=== PATIENT | female | born 1965 | race Hispanic/Latino ===

== ENCOUNTER 2017-08-18 02:31 | Emergency (ER) | payer SELFPAY ==
[2017-08-18 02:55] VITALS: BMI 39.5
--- NOTE | 2017-08-18 03:25 | ED PDOC ---
Arrival/HPI - General Chief Complaint: Alcohol Ingestion Time Seen by Provider: 08/18/17 03:25 Historian: Patient - History of Present Illness Narrative History of Present Illness (Text): 08/18/17 03:25 A 52 year old female, with no known past medical history, presents to the emergency department for intoxication. Patient denies any other complaints. Limited HPI and ROS due to patient being intoxicated and uncooperative, stating she is not drunk and wants to leave. Also, patient visibly has sustained external nose injury s/p falling forward according to EMS. No PMD Past Medical History - Provider Review Nursing Documentation Reviewed: Yes - Infectious Disease Hx of Infectious Diseases: None - Past Medical History Past Medical History: Unable to Obtain - Cardiac Hx Cardiac Disorders: No (Pt denies) - Psychiatric Hx Substance Use: No - Past Surgical History Past Surgical History: Unable to Obtain - Surgical History Hx Section: Yes (x1) - Suicidal Assessment Feels Threatened In Home Enviroment: No Family/Social History - Physician Review Nursing Documentation Reviewed: Yes Family/Social History: Unknown Family HX Smoking Status: Current Some Days Smoker Hx Alcohol Use: No Hx Substance Use: No Hx Substance Use Treatment: No Allergies/Home Meds Allergies/Adverse Reactions: Allergies lactose Allergy (Verified 08/18/17 02:56) DIARRHEA Home Medications: Home Meds Medication Instructions Recorded Confirmed Unobtainable 08/18/17 08/18/17 Review of Systems - Review of Systems Systems not reviewed;Unavailable: Intoxicated Physical Exam - Physical Exam Physical Exam Limitations: Intoxication, Uncooperative Vital Signs Temp Pulse Resp BP Pulse Ox 08/18/17 06:43 98.2 F 72 17 115/78 98 08/18/17 03:32 97.4 F L 82 17 108/74 98 08/18/17 02:31 98 F 80 18 110/70 99 Appearance: Positive for: Other (intoxicated) - Systems Exam Mouth: Present: Moist Mucous Membranes Nose (External): Present: Other (active bleeding s/p fall from small laceration to bridge of nose; according to EMS patient fell forwards) Respiratory/Chest: Present: Clear to Auscultation Cardiovascular: Present: Regular Rate and Rhythm Upper Extremity: Present: Normal Inspection Lower Extremity: Present: Normal Inspection Psychiatric: Present: Intoxicated Medical Decision Making ED Course and Treatment: 08/18/17 03:33 Impression: 52 year old female with intoxicated. Plan: -- Reassess and disposition Progress Notes: Patient became progressively more awake and alert throughout ED course. Upon discharge patient was no longer slurring her speech and was ambulating without difficulty. She still refuses any medical care including further evaluation of her nose. - Scribe Statement The provider has reviewed the documentation as recorded by the Angelo Lambert Provider Scribe Attestation: All medical record entries made by the Scribe were at my direction and personally dictated by me. I have reviewed the chart and agree that the record accurately reflects my personal performance of the history, physical exam, medical decision making, and the department course for this patient. I have also personally directed, reviewed, and agree with the discharge instructions and disposition. Disposition/Present on Arrival - Present on Arrival Any Indicators Present on Arrival: No History of DVT/PE: No History of Uncontrolled Diabetes: No Urinary Catheter: No History of Decub. Ulcer: No History Surgical Site Infection Following: None - Disposition Have Diagnosis and Disposition been Completed?: Yes Diagnosis: Alcohol intoxication, Injury of nose Disposition: HOME/ ROUTINE Disposition Time: 06:00 Condition: FAIR Discharge Instructions (ExitCare): Alcohol Abuse and Alcoholism (DC) Additional Instructions: GIANNI ROSADO, thank you for letting us take care of you today. Your provider was Mary Jo Johnson MD and you were treated for ETOH. The emergency medical care you received today was directed at your acute symptoms. If you were prescribed any medication, please fill it and take as directed. It may take several days for your symptoms to resolve. Return to the Emergency Department if your symptoms worsen, do not improve, or if you have any other problems. Please contact your doctor or call one of the physicians/clinics you have been referred to that are listed on the Patient Visit Information form that is included in your discharge packet. Bring any paperwork you were given at discharge with you along with any medications you are taking to your follow up visit. Our treatment cannot replace ongoing medical care by a primary care provider outside of the emergency department. Thank you for allowing the [facility] team to be part of your care today. If you had an X-Ray or CT scan: A Radiologist will review the ED reading if any change in treatment is needed we will contact you. If you had a blood, urine, or wound culture: It will take several days for the results, if any change in treatment is needed we will contact you. If you had an STI test: It will take 48 hours for the results. Please call after 1 week if you have not heard back. Referrals: Anish Estevez, [Primary Care Provider] - Follow up with primary Forms: [employer] (Czech)
[2017-08-18 03:33] VITALS: RESP 17; O2SAT 98
[2017-08-18 06:45] VITALS: BP 115/78; PULSE 72; TEMP 98.2
== END 2017-08-18 06:44 | disposition home or self-care (01) ==
LOC: ED 02:31
DX: F10.129 Alcohol abuse with intoxication, unspecified (principal); S09.92XA Unspecified injury of nose, initial encounter; W18.30XA Fall on same level, unspecified, initial encounter; Y92.89 Other specified places as the place of occurrence of the external cause

== ENCOUNTER 2017-11-10 20:17 | Emergency (ER) | payer SELFPAY ==
[2017-11-10 20:17] VITALS: BMI 39.5
[2017-11-10 20:32] VITALS: RESP 18; TEMP 98.4; O2SAT 99
--- NOTE | 2017-11-10 20:37 | ED PDOC ---
Arrival/HPI - General Chief Complaint: Alcohol Ingestion Time Seen by Provider: 11/10/17 20:19 Historian: Patient - History of Present Illness Narrative History of Present Illness (Text): 11/10/17 20:34 52 year old female, whose past medical history includes ETOH abuse, who presents to the Emergency department via EMS for public intoxication. Upon arrival, patient is grossly intoxicated, uncooperative, yelling, and had to be re strained. Full HPI and ROS limited due to intoxication. Time/Duration: Prior to Arrival Activities at Onset: Light Past Medical History - Provider Review Nursing Documentation Reviewed: Yes - Infectious Disease Hx of Infectious Diseases: None - Reproductive Menopause: No - Past Medical History Past Medical History: Unable to Obtain - Cardiac Hx Cardiac Disorders: No (Pt denies) - Psychiatric Hx Substance Use: No - Past Surgical History Past Surgical History: Unable to Obtain - Surgical History Hx Section: Yes (x1) - Anesthesia Hx Anesthesia: No - Suicidal Assessment Feels Threatened In Home Enviroment: No Family/Social History - Physician Review Nursing Documentation Reviewed: Yes Family/Social History: Unknown Family HX Smoking Status: Current Some Days Smoker Hx Alcohol Use: No Hx Substance Use: No Hx Substance Use Treatment: No Allergies/Home Meds Allergies/Adverse Reactions: Allergies lactose Allergy (Verified 08/18/17 02:56) DIARRHEA Home Medications: Home Meds Medication Instructions Recorded Confirmed Unobtainable 08/18/17 08/18/17 Review of Systems - Physician Review All systems were reviewed & negative as marked: Yes - Review of Systems Systems not reviewed;Unavailable: Intoxicated Physical Exam Vital Signs Reviewed: Yes Vital Signs Temp Pulse Resp BP Pulse Ox 11/10/17 20:20 98.4 F 92 H 18 133/86 99 Temperature: Afebrile Blood Pressure: Normal Pulse: Regular Respiratory Rate: Normal Appearance: Positive for: Well-Appearing, Non-Toxic, Comfortable Pain Distress: None Mental Status: Positive for: Alert and Oriented X 3 - Systems Exam Head: Present: Atraumatic, Normocephalic Pupils: Present: PERRL Extroacular Muscles: Present: EOMI Conjunctiva: Present: Normal Mouth: Present: Moist Mucous Membranes Neck: Present: Normal Range of Motion Respiratory/Chest: Present: Clear to Auscultation, Good Air Exchange. No: Respiratory Distress, Accessory Muscle Use Cardiovascular: Present: Regular Rate and Rhythm, Normal S1, S2. No: Murmurs Abdomen: No: Tenderness, Distention, Peritoneal Signs Back: Present: Normal Inspection Upper Extremity: Present: Normal Inspection. No: Cyanosis, Edema Lower Extremity: Present: Normal Inspection. No: Edema Neurological: Present: GCS=15, CN II-XII Intact, Speech Normal Skin: Present: Warm, Dry, Normal Color. No: Rashes Psychiatric: Present: Alert, Oriented x 3, Agitated, Intoxicated, Other (uncooperative) Medical Decision Making ED Course and Treatment: 11/10/17 20:37 Impression: 52 year old female presents to the emergency department via EMS for public intoxication. Plan: -- Reassess and disposition Progress Notes: 11/11/17 06:23 Patient awake alert,sober in ED with steady gait. - Scribe Statement The provider has reviewed the documentation as recorded by the Scribe Lindsay Cabello All medical record entries made by the Scribe were at my direction and personally dictated by me. I have reviewed the chart and agree that the record accurately reflects my personal performance of the history, physical exam, medical decision making, and the department course for this patient. I have also personally directed, reviewed, and agree with the discharge instructions and disposition. Disposition/Present on Arrival - Present on Arrival Any Indicators Present on Arrival: No History of DVT/PE: No History of Uncontrolled Diabetes: No Urinary Catheter: No History of Decub. Ulcer: No History Surgical Site Infection Following: None - Disposition Have Diagnosis and Disposition been Completed?: Yes Diagnosis: Alcohol intoxication Disposition: HOME/ ROUTINE Disposition Time: 06:23 Patient Plan: Discharge Patient Problems: Current Active Problems Problem Status Onset Alcohol intoxication Acute Condition: GOOD Discharge Instructions (ExitCare): Alcohol Abuse and Alcoholism (DC) Referrals: Alcoholics Anonymous [Outside] - Follow up with primary Forms: [employer] (Slovenian)
[2017-11-11 06:41] VITALS: BP 127/74; PULSE 84
== END 2017-11-11 06:30 | disposition home or self-care (01) ==
LOC: ED 20:17
DX: F10.129 Alcohol abuse with intoxication, unspecified (principal)
CPT/HCPCS: 96372; 99283; J1630; J2060

== ENCOUNTER 2017-11-19 13:13 | Emergency (ER) | payer OTHER ==
[2017-11-19 13:13] VITALS: BMI 39.5
[2017-11-19 14:43] LABS: URINE BILIRUBIN SMALL (NEGATIVE); URINE BLOOD LARGE (NEGATIVE); URINE GLUCOSE (UA) 100 mg/dL (NEGATIVE); URINE LEUKOCYTE ESTERASE MODERATE Leu/uL (NEGATIVE); URINE PROTEIN 100 mg/dL (<30 mg/dL)
[2017-11-19 14:48] LABS: URINE APPEARANCE CLEAR (CLEAR); URINE COLOR YELLOW (YELLOW)
[2017-11-19 14:55] LABS: URINE RBC 25 - 30 /hpf (0-2); URINE WBC 15 - 20 /hpf (0-6)
[2017-11-19 14:56] LABS: URINE BACTERIA LARGE (NEG)
[2017-11-19 14:57] LABS: URINE AMORPHOUS SEDIMENT MODERATE
--- NOTE | 2017-11-19 15:23 | ED PDOC ---
Addendum entered and electronically signed by Shaila Eli PA 11/22/17 16:57: Addendum Addendum: 11/22/17 16:25 spoke with patient; urine culture did not test or keflex. sensitive to PCN; spoke with patient; will change antibiotic to amoxicilllin BID x 7 days. advised f/u with pmd and return if symptoms worsen,persist or if new symptoms develop. Original Note: Arrival/HPI - General Chief Complaint: Female Genitourinary Time Seen by Provider: 11/19/17 13:35 Historian: Patient - History of Present Illness Narrative History of Present Illness (Text): 11/19/17 15:26 52yo female with no significant pmhx who present with complaint of hematuria, dysuria, lower abdominal pain x 2days. She denies fever, chills, back pain, nausea, vomiting, any other complaint. Notes she is sexually active with protection. Past Medical History - Provider Review Nursing Documentation Reviewed: Yes - Infectious Disease Hx of Infectious Diseases: None - Tetanus Immunization Tetanus Immunization: Unknown - Reproductive Menopause: Yes - Past Medical History Past Medical History: Unable to Obtain - Cardiac Hx Cardiac Disorders: No - Pulmonary Hx Respiratory Disorders: No - Neurological Hx Neurological Disorder: No - HEENT Hx HEENT Disorder: No - Renal Hx Renal Disorder: No - Endocrine/Metabolic Hx Endocrine Disorders: No - Hematological/Oncological Hx Blood Disorders: No - Integumentary Hx Dermatological Disorder: No - Musculoskeletal/Rheumatological Hx Musculoskeletal Disorders: No - Gastrointestinal Hx Gastrointestinal Disorders: No - Genitourinary/Gynecological Hx Genitourinary Disorders: Yes Hx Sexually Transmitted Diseases: Yes Other/Comment: GENITAL WARTS - Psychiatric Hx Psychophysiologic Disorder: No Hx Substance Use: No - Past Surgical History Past Surgical History: Unable to Obtain - Surgical History Hx Section: Yes (x1) - Anesthesia Hx Anesthesia: No - Suicidal Assessment Feels Threatened In Home Enviroment: No Family/Social History - Physician Review Nursing Documentation Reviewed: Yes Family/Social History: Unknown Family HX Smoking Status: Current Some Days Smoker Hx Alcohol Use: Yes Hx Substance Use: No Hx Substance Use Treatment: No Allergies/Home Meds Allergies/Adverse Reactions: Allergies lactose Allergy (Verified 11/19/17 13:39) DIARRHEA Review of Systems - Physician Review All systems were reviewed & negative as marked: Yes - Review of Systems Constitutional: Normal Eyes: Normal ENT: Normal Respiratory: Normal Cardiovascular: Normal Gastrointestinal: Abdominal Pain. absent: Constipation, Diarrhea, Nausea, Vom iting, Hematochezia, Hematemesis Genitourinary Female: Dysuria, Frequency, Hematuria Musculoskeletal: Normal Skin: Normal Neurological: Normal Endocrine: Normal Hemo/Lymphatic: Normal Psychiatric: Normal Physical Exam Vital Signs Reviewed: Yes Vital Signs Temp Pulse Resp BP Pulse Ox 11/19/17 13:40 99.1 F 99 H 16 152/87 H 98 Temperature: Afebrile Blood Pressure: Normal Pulse: Regular Respiratory Rate: Normal Appearance: Positive for: Well-Appearing, Non-Toxic, Comfortable Pain Distress: None Mental Status: Positive for: Alert and Oriented X 3 - Systems Exam Head: Present: Atraumatic, Normocephalic Pupils: Present: PERRL Extroacular Muscles: Present: EOMI Conjunctiva: Present: Normal Mouth: Present: Moist Mucous Membranes Neck: Present: Normal Range of Motion Respiratory/Chest: Present: Clear to Auscultation, Good Air Exchange. No: Respiratory Distress, Accessory Muscle Use Cardiovascular: Present: Regular Rate and Rhythm, Normal S1, S2. No: Murmurs Abdomen: Present: Tenderness (Suprapubic tenderness), Normal Bowel Sounds, Other (Soft). No: Distention, Peritoneal Signs, Rebound, Guarding, McBurney's Point Tender, Rovsing's Sign Present Back: Present: Normal Inspection Upper Extremity: Present: Normal Inspection. No: Cyanosis, Edema Lower Extremity: Present: Normal Inspection. No: Edema Neurological: Present: GCS=15, CN II-XII Intact, Speech Normal Skin: Present: Warm, Dry, Normal Color. No: Rashes Psychiatric: Present: Alert, Oriented x 3, Normal Insight, Normal Concentration Medical Decision Making ED Course and Treatment: 11/19/17 19:50 PT in ED for stated history. She was afebrile and had no CVAT. She had UTI and yeast in her urine. she was treated for both in ED and was DC home with keflex. Referred to her PMD. - Lab Interpretations Lab Results: Lab Results 11/19/17 14:30: Urine Color Yellow, Urine Appearance Clear, Urine pH 6.0, Ur Specific [place] 1.010, Urine Protein 100 H, Urine Glucose (UA) 100 H, Urine Ketones Negative, Urine Blood Large H, Urine Nitrate Negative, Urine Bilirubin Small H, Urine Urobilinogen 4.0 H, Ur Leukocyte Esterase Moderate H, Urine RBC 25 - 30, Urine WBC 15 - 20, Ur Epithelial Cells 6 - 8, Amorphous Sediment Moderate, Urine Bacteria Large, Urine Other Uyeast Disposition/Present on Arrival - Present on Arrival Any Indicators Present on Arrival: No History of DVT/PE: No History of Uncontrolled Diabetes: No Urinary Catheter: No History of Decub. Ulcer: No History Surgical Site Infection Following: None - Disposition Have Diagnosis and Disposition been Completed?: Yes Diagnosis: UTI (urinary tract infection), Candidiasis Disposition: HOME/ ROUTINE Disposition Time: 15:25 Patient Plan: Discharge Condition: STABLE Discharge Instructions (ExitCare): Urinary Tract Infections in Adults, Yeast Infection (DC) Additional Instructions: Follow up with your Doctor Drink plenty of fluid and take Cranberry supplement Return to ED for any new or worsening symptoms Prescriptions: Cephalexin [cephalexin] 500 mg PO TID #21 cap Referrals: Veronica Lees MD [Medical Doctor] - Follow up with primary Forms: [employer] (Bruneian)
[2017-11-19 15:36] VITALS: BP 157/96; PULSE 95; RESP 18; TEMP 98.1; O2SAT 100
== END 2017-11-19 15:39 | disposition home or self-care (01) ==
LOC: ED 13:13
DX: B37.49 Other urogenital candidiasis (principal)

== ENCOUNTER 2017-11-29 18:08 | Emergency (ER) | payer OTHER ==
[2017-11-29 18:08] VITALS: BMI 39.5
[2017-11-29 18:51] VITALS: RESP 18; TEMP 98.8
[2017-11-29 20:22] LABS: URINE BILIRUBIN NEGATIVE (NEGATIVE); URINE BLOOD SMALL (NEGATIVE); URINE GLUCOSE (UA) NEGATIVE (NEGATIVE); URINE LEUKOCYTE ESTERASE SMALL Leu/uL (NEGATIVE); URINE PROTEIN NEGATIVE mg/dL (<30 mg/dL); URINE UROBILINOGEN 0.2 E.U./dL (<1 E.U./dL)
[2017-11-29 20:24] LABS: URINE APPEARANCE SLIGHT-CLOUDY (CLEAR); URINE COLOR YELLOW (YELLOW)
[2017-11-29 20:29] LABS: URINE WBC 0 - 2 /hpf (0-6)
[2017-11-29 20:30] LABS: URINE BACTERIA TRACE (NEG)
[2017-11-29 21:18] VITALS: BP 135/78; PULSE 75; O2SAT 100
--- NOTE | 2017-11-29 21:36 | ED PDOC ---
Arrival/HPI - General Historian: Patient - History of Present Illness Narrative History of Present Illness (Text): 11/29/17 21:36 52-year-old female presents today for evaluation to check to see if her urinary tract infection has resolved. Patient states she switched antibiotics to amoxicillin and completed the last dose of amoxicillin today. Patient states she is feeling much better but still feels like she may be going to the bathroom's more frequently. Patient denies nausea vomiting diarrhea constipation. She denies abdominal pain. No fevers or chills. No back pain. No other complaints <Shaila Eli - Last Filed: 11/29/17 21:33> <Paul Foster - Last Filed: 11/29/17 22:40> - General Chief Complaint: Female Genitourinary Time Seen by Provider: 11/29/17 19:55 Past Medical History - Provider Review Nursing Documentation Reviewed: Yes - Travel History Have you recently traveled outside [place] w/in the past 3 mons?: No - Infectious Disease Hx of Infectious Diseases: None - Tetanus Immunization Tetanus Immunization: Unknown - Reproductive Menopause: No - Past Medical History Past Medical History: Unable to Obtain - Cardiac Hx Cardiac Disorders: No - Pulmonary Hx Respiratory Disorders: No - Neurological Hx Neurological Disorder: No - HEENT Hx HEENT Disorder: No - Renal Hx Renal Disorder: No - Endocrine/Metabolic Hx Endocrine Disorders: No - Hematological/Oncological Hx Blood Disorders: No - Integumentary Hx Dermatological Disorder: No - Musculoskeletal/Rheumatological Hx Musculoskeletal Disorders: No - Gastrointestinal Hx Gastrointestinal Disorders: No - Genitourinary/Gynecological Hx Genitourinary Disorders: Yes Hx Sexually Transmitted Diseases: Yes Other/Comment: GENITAL WARTS - Psychiatric Hx Psychophysiologic Disorder: No Hx Substance Use: No - Past Surgical History Past Surgical History: Unable to Obtain - Surgical History Hx Section: Yes (x1) - Anesthesia Hx Anesthesia: No - Suicidal Assessment Feels Threatened In Home Enviroment: No <Shaila Eli - Last Filed: 11/29/17 21:33> Family/Social History - Physician Review Nursing Documentation Reviewed: Yes Family/Social History: Unknown Family HX Smoking Status: Current Some Days Smoker Hx Alcohol Use: Yes Hx Substance Use: No Hx Substance Use Treatment: No <Shaila Eli - Last Filed: 11/29/17 21:33> Allergies/Home Meds <Shaila Eli - Last Filed: 11/29/17 21:33> <Paul Foster - Last Filed: 11/29/17 22:40> Allergies/Adverse Reactions: Allergies lactose Allergy (Verified 11/19/17 13:39) DIARRHEA Review of Systems - Review of Systems Constitutional: absent: Fatigue, Fevers Respiratory: absent: SOB, Cough Cardiovascular: absent: Chest Pain, Palpitations Gastrointestinal: absent: Abdominal Pain, Constipation, Diarrhea, Nausea, Vomiting Genitourinary Female: Dysuria, Frequency. absent: Hematuria, Urine Output Changes, Vaginal Bleeding, Vaginal Discharge Musculoskeletal: absent: Arthralgias, Back Pain, Neck Pain Skin: absent: Rash, Pruritis Neurological: absent: Headache, Dizziness Psychiatric: absent: Anxiety, Depression, Suicidal Ideation <Shaila Eli - Last Filed: 11/29/17 21:33> Physical Exam Vital Signs Reviewed: Yes Vital Signs Temp Pulse Resp BP Pulse Ox 11/29/17 21:15 75 18 135/78 100 11/29/17 18:47 98.8 F 80 18 144/82 99 Temperature: Afebrile Blood Pressure: Normal Pulse: Regular Respiratory Rate: Normal Appearance: Positive for: Well-Appearing, Non-Toxic, Comfortable Pain Distress: None Mental Status: Positive for: Alert and Oriented X 3 - Systems Exam Head: Present: Atraumatic Mouth: Present: Moist Mucous Membranes Neck: Present: Normal Range of Motion Respiratory/Chest: Present: Clear to Auscultation Cardiovascular: Present: Regular Rate and Rhythm Abdomen: No: Tenderness, Distention, Rebound, Guarding Back: Present: Normal Inspection Upper Extremity: Present: Normal Inspection Lower Extremity: Present: Normal Inspection Neurological: Present: GCS=15, Speech Normal Skin: Present: Warm, Dry, Normal Color. No: Rashes Psychiatric: Present: Alert, Oriented x 3 <Shaila Eli - Last Filed: 11/29/17 21:33> Vital Signs Temp Pulse Resp BP Pulse Ox 11/29/17 21:15 75 18 135/78 100 11/29/17 18:47 98.8 F 80 18 144/82 99 <Paul Foster - Last Filed: 11/29/17 22:40> Medical Decision Making ED Course and Treatment: 11/29/17 21:51 52-year-old female presents today checking to see if her urinary tract infection has improved. Still states she's having slight frequency and possible slight burning upon urination. Urinalysis shows trace leukocytes 0-2 white blood cells. This has drastically improved since her previous urinalysis. Patient is refusing blood work. She is refusing CAT scan of the abdomen and pelvis for further evaluation. Patient is requesting additional doses of antibiotics. I discussed all results in depth with the patient. I will give the patient 3 more days of amoxicillin. Patient was advised to follow-up with the primary care physician/clinic within the next 2 days. She is advised immediate return if symptoms worsen persist or if new concerning symptoms develop Patient verbalizes understanding of discharge instructions and need for immediate followup. all aspects of this case were discussed the attending of record. Impression: UTI continue amoxicillin for 3 more days follow up with the primary care physician within the next 2 days. return immediately if symptoms worsen,persist or if new symptoms develop. - Lab Interpretations Lab Results: Lab Results 11/29/17 20:12: Urine Color Yellow, Urine Appearance Slight-cloudy, Urine pH 7.0, Ur Specific [place] 1.020, Urine Protein Negative, Urine Glucose (UA) Negative, Urine Ketones Trace H, Urine Blood Small H, Urine Nitrate Negative, Urine Bilirubin Negative, Urine Urobilinogen 0.2, Ur Leukocyte Esterase Small H, Urine RBC 1 - 3, Urine WBC 0 - 2, Ur Epithelial Cells None, Urine Bacteria Trace - Medication Orders Current Medication Orders: Discontinued Medications Amoxicillin (Amoxil 500 Mg Cap) 500 mg PO STAT STA; Protocol Stop: 11/29/17 21:04 Last Admin: 11/29/17 21:13 Dose: 500 mg <Shaila Eli T - Last Filed: 11/29/17 21:33> - Lab Interpretations Lab Results: Lab Results 11/29/17 20:12: Urine Color Yellow, Urine Appearance Slight-cloudy, Urine pH 7.0, Ur Specific [place] 1.020, Urine Protein Negative, Urine Glucose (UA) Negative, Urine Ketones Trace H, Urine Blood Small H, Urine Nitrate Negative, Urine Bilirubin Negative, Urine Urobilinogen 0.2, Ur Leukocyte Esterase Small H, Urine RBC 1 - 3, Urine WBC 0 - 2, Ur Epithelial Cells None, Urine Bacteria Trace - Medication Orders Current Medication Orders: Discontinued Medications Amoxicillin (Amoxil 500 Mg Cap) 500 mg PO STAT STA; Protocol Stop: 11/29/17 21:04 Last Admin: 11/29/17 21:13 Dose: 500 mg <Paul Foster - Last Filed: 11/29/17 22:40> - PA / BUSINESS OBJECTS CONSULTANT / Resident Statement / has reviewed & agrees with the documentation as recorded. <Paul Foster - Last Filed: 11/29/17 22:40> Disposition/Present on Arrival - Present on Arrival Any Indicators Present on Arrival: No History of DVT/PE: No History of Uncontrolled Diabetes: No Urinary Catheter: No History of Decub. Ulcer: No History Surgical Site Infection Following: None - Disposition Have Diagnosis and Disposition been Completed?: Yes Disposition Time: 21:40 Patient Plan: Discharge <Shaila Eli - Last Filed: 11/29/17 21:33> <Paul Foster - Last Filed: 11/29/17 22:40> - Disposition Diagnosis: UTI (urinary tract infection) Disposition: HOME/ ROUTINE Condition: GOOD Discharge Instructions (ExitCare): Urinary Tract Infection, Adult (DC) Additional Instructions: continue amoxicillin for 3 more days follow up with the primary care physician within the next 2 days. return immediately if symptoms worsen,persist or if new symptoms develop. Prescriptions: Amoxicillin 875 mg PO BID #6 tab Referrals: Rolando Pires MD [Staff Provider] - Follow up with primary Veronica Lees MD [Family Provider] - Follow up with primary [facility] [Outside] - Follow up with primary Forms: [employer] (Icelandic)
== END 2017-11-29 21:45 | disposition home or self-care (01) ==
LOC: ED 18:08
DX: N39.0 Urinary tract infection, site not specified (principal)

== ENCOUNTER 2018-04-07 03:57 | Emergency (ER) | payer SELFPAY ==
[2018-04-07 03:58] VITALS: BMI 39.5
--- NOTE | 2018-04-07 04:10 | ED PDOC ---
Arrival/HPI - General Historian: Patient, EMS EM Caveat: Intoxicated - History of Present Illness Narrative History of Present Illness (Text): 04/07/18 04:08 52 year old female, with past medical history of alcohol abuse, presents to emergency department brought in by EMS following episode of public intoxication. EMS states patient was outside on park bench and unable to stand unassisted when the police approached her. En route to the hospital, the patient became combative towards them and had to be physically restrained. A more complete HPI is unable to be completed due to the patient's clinical condition Time/Duration: Prior to Arrival Symptom Onset: Gradual Symptom Course: Unchanged Activities at Onset: Light Context: Street <Antolin Parsons - Last Filed: 04/07/18 06:22> <Fahad Brewer - Last Filed: 04/07/18 12:31> - General Chief Complaint: Alcohol Ingestion Time Seen by Provider: 04/07/18 03:59 Past Medical History - Provider Review Nursing Documentation Reviewed: Yes - Infectious Disease Hx of Infectious Diseases: None - Tetanus Immunization Tetanus Immunization: Unknown - Past Medical History Past Medical History: Unable to Obtain - Cardiac Hx Cardiac Disorders: No - Pulmonary Hx Respiratory Disorders: No - Neurological Hx Neurological Disorder: No - HEENT Hx HEENT Disorder: No - Renal Hx Renal Disorder: No - Endocrine/Metabolic Hx Endocrine Disorders: No - Hematological/Oncological Hx Blood Disorders: No - Integumentary Hx Dermatological Disorder: No - Musculoskeletal/Rheumatological Hx Musculoskeletal Disorders: No - Gastrointestinal Hx Gastrointestinal Disorders: No - Genitourinary/Gynecological Hx Genitourinary Disorders: Yes Hx Sexually Transmitted Diseases: Yes Other/Comment: GENITAL WARTS - Psychiatric Hx Psychophysiologic Disorder: No Hx Substance Use: No - Past Surgical History Past Surgical History: Unable to Obtain - Surgical History Hx Section: Yes (x1) - Anesthesia Hx Anesthesia: No - Suicidal Assessment Feels Threatened In Home Enviroment: No <Antolin Parsons - Last Filed: 04/07/18 06:22> Family/Social History - Physician Review Nursing Documentation Reviewed: Yes Family/Social History: Unknown Family HX Smoking Status: Current Some Days Smoker Hx Alcohol Use: Yes Hx Substance Use: No Hx Substance Use Treatment: No <Antolin Parsons - Last Filed: 04/07/18 06:22> Family/Social History: Unknown Family HX <Fahad Brewer - Last Filed: 04/07/18 12:31> Allergies/Home Meds <Antolin Parsons - Last Filed: 04/07/18 06:22> <Fahad Brewer - Last Filed: 04/07/18 12:31> Allergies/Adverse Reactions: Allergies lactose Allergy (Verified 11/19/17 13:39) DIARRHEA Review of Systems - Physician Review All systems were reviewed & negative as marked: Yes - Review of Systems Systems not reviewed;Unavailable: Intoxicated <Antolin Parsons - Last Filed: 04/07/18 06:22> Physical Exam - Physical Exam Physical Exam Limitations: Intoxication Vital Signs Reviewed: Yes Temperature: Hypothermic Blood Pressure: Normal Pulse: Regular Respiratory Rate: Normal Appearance: Positive for: Well-Appearing, Non-Toxic, Comfortable Pain Distress: None Mental Status: Positive for: Alert and Oriented X 3 - Systems Exam Head: Present: Atraumatic, Normocephalic Pupils: Present: PERRL Extroacular Muscles: Present: EOMI Conjunctiva: Present: Normal Mouth: Present: Moist Mucous Membranes Neck: Present: Normal Range of Motion Respiratory/Chest: Present: Clear to Auscultation, Good Air Exchange. No: Respiratory Distress, Accessory Muscle Use Cardiovascular: Present: Regular Rate and Rhythm, Normal S1, S2. No: Murmurs Abdomen: No: Tenderness, Distention, Peritoneal Signs Back: Present: Normal Inspection Upper Extremity: Present: Normal Inspection. No: Cyanosis, Edema Lower Extremity: Present: Normal Inspection. No: Edema Neurological: Present: GCS=15 Skin: Present: Warm, Dry, Normal Color. No: Rashes Psychiatric: Present: Alert, Intoxicated <Antolin Parsons - Last Filed: 04/07/18 06:22> Vital Signs Temp Pulse Resp BP Pulse Ox 04/07/18 06:00 97.8 F 04/07/18 04:14 79 20 115/78 97 04/07/18 04:12 94.5 F L <Fahad Brewer - Last Filed: 04/07/18 12:31> Medical Decision Making ED Course and Treatment: 04/07/18 04:16 Impression: 52 year old female presents to emergency department brought in by EMS following episode of public intoxication. Differential Diagnosis included but are not limited to: -- Alcohol intoxication Plan: --Alcohol level --Shamika pina -- Reassess and disposition Prior Visits: Notes and results from previous visits were reviewed. Progress Notes: 04/07/18 06:[address] Brewer who will resume the patient's care. Pending clinical sobriety - Lab Interpretations Lab Results: Lab Results 04/07/18 04:20: Alcohol, Quantitative 345 H* I have reviewed the lab results: Yes <Antolin Parsons - Last Filed: 04/07/18 06:22> ED Course and Treatment: 04/07/18 07:16 Patient was signed out to me by intoxicated and waiting for sobriety. Patient is sleeping soundly in the stretcher. No problems reported overnight. 04/07/18 10:49 Patient is awake alert, up and wandering about the emergency department and no longer clinically intoxicated. She will be discharged home. Follow-up in ER as needed. Follow-up with PMD. <Fahad Brewer - Last Filed: 04/07/18 12:31> - Scribe Statement The provider has reviewed the documentation as recorded by the Scribe Jose Corrales All medical record entries made by the Scribe were at my direction and personally dictated by me. I have reviewed the chart and agree that the record accurately reflects my personal performance of the history, physical exam, medical decision making, and the department course for this patient. I have also personally directed, reviewed, and agree with the discharge instructions and disposition. <Antolin Parsons - Last Filed: 04/07/18 06:22> Disposition/Present on Arrival - Present on Arrival Any Indicators Present on Arrival: No History of DVT/PE: No History of Uncontrolled Diabetes: No Urinary Catheter: No History Surgical Site Infection Following: None - Disposition Have Diagnosis and Disposition been Completed?: Yes <Antolin Parsons - Last Filed: 04/07/18 06:22> - Present on Arrival Any Indicators Present on Arrival: No History of DVT/PE: No History of Uncontrolled Diabetes: No Urinary Catheter: No History of Decub. Ulcer: No - Disposition Have Diagnosis and Disposition been Completed?: Yes Disposition Time: 10:50 Patient Plan: Discharge <Fahad Brewer - Last Filed: 04/07/18 12:31> - Disposition Diagnosis: Alcohol abuse Disposition: HOME/ ROUTINE Condition: GOOD Discharge Instructions (ExitCare): Alcohol Use - When Is Drinking a Problem?, Alcohol Abuse and Alcoholism (DC) Forms: [employer] ([place])
[2018-04-07 10:33] VITALS: PULSE 85; RESP 18; O2SAT 99
[2018-04-07 11:01] VITALS: BP 119/57; TEMP 98
== END 2018-04-07 10:58 | disposition home or self-care (01) ==
LOC: ED 03:57
DX: F10.10 Alcohol abuse, uncomplicated (principal); Y90.8 Blood alcohol level of 240 mg/100 ml or more
CPT/HCPCS: 99285; G0480